=== PATIENT | male | born 1955 | race Caucasian/White ===

== ENCOUNTER 2023-01-11 11:37 | Emergency (ER) | payer MEDICARE, SELFPAY ==
[2023-01-11 11:51] VITALS: BP 120/85; PULSE 74; RESP 18; TEMP 36.5; O2SAT 95; BMI 32.9
[2023-01-11] MEDS: ONDANSETRON PF 4 MG/2 ML VIAL IV (12:18)
[2023-01-11] MEDS: 0.9 % SODIUM CHLORIDE 1,000 ML 1000 ML (12:25)
[2023-01-11 12:31] LABS: Basophils Percent Auto 0.3 % (0.2-2.0); Eosinophils Percent Auto 0.6 % (0.9-7.0); Hematocrit 46.7 % (42.0-54.0); Hemoglobin 15.8 g/dL (14.0-18.0); Immature Granulocytes Abs Auto 0.01 10^3/uL (0.00-0.03); Immature Granulocytes Pct Auto 0.1 % (0.0-0.5); Lymphocytes Absolute Auto 0.9 10^3/uL (1.2-3.8); Lymphocytes Percent Auto 12.9 % (20.5-60.0); Mean Corpuscular HGB Conc 33.8 g/dL (29.9-35.2); Mean Corpuscular Hemoglobin 30.6 pg (25.9-34.0); Mean Corpuscular Volume 90.5 fL (80.0-94.0); Monocytes Absolute Auto 0.9 10^3/uL (0.3-0.8); Monocytes Percent Auto 12.9 % (1.7-12.0); Neutrophils Percent Auto 73.2 % (43.0-75.0); Platelet Count 210 10^3/uL (150-450); Red Blood Count 5.16 10^6/uL (4.70-6.10); Red Cell Distribution Width 13.2 % (11.0-15.0); White Blood Count 6.9 10^3/uL (4.0-11.0)
[2023-01-11 13:04] LABS: Alanine Aminotransferase 38 U/L (16-63); Albumin Globulin Ratio 0.9; Albumin Level 3.5 g/dL (3.4-5.0); Alkaline Phosphatase 45 U/L (46-116); Aspartate Amino Transferase 21 U/L (15-37); BUN Creatinine Ratio 20.2; Calcium 8.4 mg/dL (8.5-10.1); Carbon Dioxide 26.7 mmol/L (21.0-32.0); Chloride 100 mmol/L (98-107); Estimated GFR (African America >60 (>=60); Estimated GFR (Non-African Ame >60 (>=60); Globulin 3.9 g/dL; Glucose 122 mg/dL (74-106); Potassium 3.7 mmol/L (3.5-5.1); Sodium 134 mmol/L (136-145); Total Protein 7.4 g/dL (6.4-8.2)
--- NOTE | 2023-01-11 15:14 | ECG_ITS ---
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
--- NOTE | 2023-01-11 15:15 | ED.GENADUL1 ---
HPI - General Adult General Chief complaint: Nausea/Vomiting/Diarrhea Stated complaint: VOMITING,DIARHEA Time Seen by Provider: 01/11/23 14:04 Source: patient Mode of arrival: walk-in History of Present Illness HPI narrative: Patient is a 67-year-old male who is presenting to the Emergency Room with chief complaint of nausea, vomiting diarrhea the started night. Patient is traveling in town to see his sister who lives locally in [place]. Patient is from [facility]. Patient's had no new antibiotics recently, no new water source changes of significance. No recent sick contacts that he is aware of. Patient is here for the weekend to visit family. night patient started with nausea, vomiting diarrhea. He had a few episodes yesterday of nausea, vomiting diarrhea. Patient's had no vomiting today, just diarrhea. Patient has mild lightheaded and dizziness, no vertigo. No headache. No chest pain or shortness of breath. Patient does have a significant cardiac history with himself and his brothers. Patient is abdominal distention minimally and cramping, no other acute complaints. . All systems are negative except as noted/marked. All systems reviewed and otherwise negative. . Nurses note and vital signs reviewed and patient is not hypoxic. General: The patient appears well and in no apparent distress. Patient is resting comfortably on cart. Patient is not toxic, lethargic, or listless Skin: Warm, dry, no pallor noted. There is no rash noted. No petechiae, purpura. Head: Normocephalic, atraumatic Eye: Normal conjunctiva, no drainage, EOMI. PERRL Ears, Nose, Mouth, and Throat: oral mucosa is Slightly dry.. Nares patent. Mouth without vesicles. Cardiovascular: Regular Rate and Rhythm, no murmur, gallop, rub Respiratory: Patient is in no distress, no accessory muscle use, lungs are clear to auscultation, no wheezing, rales or rhonchi Back: non-tender, no CVA tenderness bilaterally to percussion. No CT LS midline pain GI: soft, Obese, mild right and left upper quadrant tenderness palpation, mild midepigastric tenderness to palpation, no rigidity, no tympany, bowel sounds ?4. No flank pain bilateral. No CVA tenderness bilateral.no tenderness to palpation, no masses appreciated. No rebound, guarding, or rigidity noted. No flank pain bilateral, No distention. Musculoskeletal: Patient has full range of motion of all of the extremities, no motor, sensory, or focal neurological deficits Neurological: A&O x3, normal speech Psychiatric: Cooperative Related Data Previous Rx's Medication Instructions Recorded dicyclomine 10 mg capsule 20 mg PO TID PRN abdominal pain 01/11/23 #10 caps ondansetron 4 mg disintegrating 4 mg PO QID PRN Nausea And 01/11/23 tablet Vomiting 5 days #10 tabs Allergies Allergy/AdvReac Type Severity Reaction Status Date / Time ARB-Angiotensin Receptor AdvReac Intermediate Verified 01/11/23 11:50 Antagonist codeine AdvReac Intermediate Verified 01/11/23 11:50 Penicillins AdvReac Intermediate Verified 01/11/23 12:11 Sulfa (Sulfonamide AdvReac Intermediate Verified 01/11/23 11:50 Antibiotics) Exam Constitutional Vital Signs, click to edit/add: Last Vital Signs Temp 97.7 F 01/11/23 11:51 Pulse 74 01/11/23 11:51 Resp 18 01/11/23 11:51 BP 120/85 H 01/11/23 11:51 Pulse Ox 95 01/11/23 11:51 O2 Del Method Room Air 01/11/23 11:51 Course Vital Signs Vital signs: Vital Signs Temperature 97.7 F 01/11/23 11:51 Pulse Rate 74 01/11/23 11:51 Respiratory Rate 18 01/11/23 11:51 Blood Pressure 120/85 H 01/11/23 11:51 Pulse Oximetry 95 01/11/23 11:51 Oxygen Delivery Method Room Air 01/11/23 11:51 Temperature 97.7 F 01/11/23 11:51 Pulse Rate 74 01/11/23 11:51 Respiratory Rate 18 01/11/23 11:51 Blood Pressure 120/85 H 01/11/23 11:51 Pulse Oximetry 95 01/11/23 11:51 Oxygen Delivery Method Room Air 01/11/23 11:51 Medical Decision Making MDM Narrative Medical decision making narrative: Patient was given 1 L of IV fluid along with IV Zofran. Patient feels better. Patient sisters at bedside. Patient was given ice chips and that he tolerated well. Patient was sent home with a prescription for Zofran, Bentyl and patient continue increase fluids. Patient has no other questions. Blameless apologies were given to patient and sister bedside feeling the way today secondary to Emergency Room volume. Patient very thankful and feels much better at discharge. Lab Data Labs: Lab Results 01/11/23 Range/Units 12:00 WBC 6.9 (4.0-11.0) 10^3/uL RBC 5.16 (4.70-6.10) 10^6/uL Hgb 15.8 (14.0-18.0) g/dL Hct 46.7 (42.0-54.0) % MCV 90.5 (80.0-94.0) fL MCH 30.6 (25.9-34.0) pg MCHC 33.8 (29.9-35.2) g/dL RDW 13.2 (11.0-15.0) % Plt Count 210 (150-450) 10^3/uL MPV 9.0 L (9.5-13.5) fL Neut % (Auto) 73.2 (43.0-75.0) % Lymph % (Auto) 12.9 L (20.5-60.0) % [place] % (Auto) 12.9 H (1.7-12.0) % Eos % (Auto) 0.6 L (0.9-7.0) % Baso % (Auto) 0.3 (0.2-2.0) % Neut # (Auto) 5.0 (1.4-6.5) 10^3/uL Lymph # (Auto) 0.9 L (1.2-3.8) 10^3/uL [place] # (Auto) 0.9 H (0.3-0.8) 10^3/uL Eos # (Auto) 0.0 (0.0-0.7) 10^3/uL Baso # (Auto) 0.0 (0.0-0.1) 10^3/uL Abs Immat Gran (auto) 0.01 (0.00-0.03) 10^3/uL Imm/Tot Granulo (auto) 0.1 (0.0-0.5) % Sodium 134 L (136-145) mmol/L Potassium 3.7 (3.5-5.1) mmol/L Chloride 100 (98-107) mmol/L Carbon Dioxide 26.7 (21.0-32.0) mmol/L Anion Gap 11.0 BUN 18.0 (7.0-18.0) mg/dL Creatinine 0.89 (0.70-1.30) mg/dL Est GFR ( Amer) >60 (>=60) Est GFR (Non-Af Amer) >60 (>=60) BUN/Creatinine Ratio 20.2 Glucose 122 H (74-106) mg/dL Calcium 8.4 L (8.5-10.1) mg/dL Total Bilirubin 1.0 (0.2-1.0) mg/dL AST 21 (15-37) U/L ALT 38 (16-63) U/L Alkaline Phosphatase 45 L (46-116) U/L Total Protein 7.4 (6.4-8.2) g/dL Albumin 3.5 (3.4-5.0) g/dL Globulin 3.9 g/dL Albumin/Globulin Ratio 0.9 ECG Data Attestation: I personally reviewed and interpreted this ECG as follows: Interpretation: EKG interpretation. Sinus rhythm at 69 beats a minute. Normal axis deviation. No acute ST elevation, no acute ectopy. Artifact noted. QTC of 438. Discharge Plan Discharge Chief Complaint: Nausea/Vomiting/Diarrhea Clinical Impression: Nausea & vomiting, Dehydration, Diarrhea Patient Disposition: Home, Self-Care Condition: Good Prescriptions / Home Meds: New ondansetron 4 mg tablet,disintegrating 4 mg PO QID PRN (Reason: Nausea And Vomiting) 5 Days Qty: 10 0RF dicyclomine 10 mg capsule 20 mg PO TID PRN (Reason: abdominal pain) Qty: 10 0RF Instructions: Dehydration (ED), Acute Nausea and Vomiting (DC), Acute Diarrhea (ED) Additional Instructions: Continue to increase fluids, Gatorade, Powerade, or propel. He is nausea medicine to help increase fluids. Use Bentyl to help with abdominal cramping. Stand Alone Forms: Portal Instructions Referrals: Physician,Non-Staff, MD [Primary Care Provider] - 1 week
== END 2023-01-11 15:20 | disposition home or self-care (01) ==
PROVIDERS: Emergency Provider Emergency Medicine
DX: R11.2 Nausea with vomiting, unspecified (principal); R19.7 Diarrhea, unspecified; E86.0 Dehydration
CPT/HCPCS: 36415; 80053; 85025; 87045; 87493; 93005; 96374; 99285